=== PATIENT | female | born 1955 | race Caucasian/White ===

== ENCOUNTER 2018-12-01 05:35 | Day surgery (SDC) | payer OTHER ==
[~2018-12-01] VITALS: Ht 165.1 cm; Wt 74.8 kg
[~2018-12-01 05:35] MED LIST: ASPIR-LOW81 MG PO; GLUCOPHAGE XR750 MG PO; LOSARTAN POTASS50 MG PO; LOVASTATIN20 MG PO; OMEPRAZOLE20 MG PO; ONE DAILY MULT1 EAC1 PO
[2018-12-01] MEDS ORDERED: HYDROCODON-ACE1 EA11 PO (08:04)
--- NOTE | 2018-12-01 08:19 | NUR ---
12/01/18 0819 Nicky Covarrubias 0808 PT ARRIVED TO PACU ON 9L VIA MASK, PT DROWSY AND DENIES PAIN AND NAUSEA. RESP EVEN AND UNLABORED. 0814 O2 MASK REMOVED. PLAN OF CARE DISCUSSED WITH PT.
--- NOTE | 2018-12-01 11:10 | NUR ---
PATIENT RETURNED FROM SURGERY, LEFT SHOULDER IN BRACE WITH KRYOCUFF, DRESSING IS CDI. PATIENT SALINE LOCKED, TOLERATING PO, GIVEN PO NORCO, AMBULATED INDEPENDANTLY TO BATHROOM TO VOID. PLAN TO CHECK BP IN 15 MINUTES.
--- NOTE | 2018-12-06 08:32 | OR ---
[facility] [address] [place], [place] [address] Signed DATE OF OPERATION: 12/01/2018 SURGEON: Mary Uriostegui MD PREOPERATIVE DIAGNOSIS: Rotator cuff tear, left shoulder. POSTOPERATIVE DIAGNOSIS: Rotator cuff tear, left shoulder. PROCEDURE PERFORMED: Left shoulder arthroscopy with rotator cuff repair. ANESTHESIA: General. MEDICAL TECHNICIAN ASSISTANT: Phoebe Yao PA-C. Phoebe was present in critical positioning camera manipulation, and closing. BLOOD LOSS: Minimal. IMPLANTS: Arthrex 4.75 SwiveLock with a FiberTape. BRIEF HISTORY: Daniella is a 63-year-old female with pain in her shoulder that is pretty substantial. She had an MRI, which showed a complete biceps tear and a partial to near full thickness rotator cuff tear in the supraspinatus. Risks and benefits of operative treatment were discussed with her and she elected to proceed. DESCRIPTION OF PROCEDURE: Once consent was obtained, she was taken to the operating room. After adequate anesthesia, she was placed in a beach chair position. All downside pressure points were well padded. The right arm was well padded on arm adam. The left shoulder was then prepped and draped in standard sterile fashion and injected with 10 mL of 0.25% Marcaine with epinephrine in this shoulder and the subacromial space. The standard posterior portal was made. The scope was introduced in the shoulder. Electronically Signed By: MARY URIOSTEGUI MD 12/06/18 0832 PATIENT NAME: DANIELLA LEZAMA OPERATIVE REPORT DATE OF : 51 REPORT #: [id number] PHYSICIAN: MARY URIOSTEGUI MD PCP: NO PRIMARY CARE PHYSICIAN REPORT IS CONFIDENTIAL AND NOT TO BE RELEASED WITHOUT AUTHORIZATION [facility] [address] [place] [address] Signed ARTHROSCOPIC FINDINGS: The glenohumeral surfaces were intact. The labrum was intact with a chunk of biceps superiorly. The rest of her biceps was retracted and torn. There was extensive synovitis throughout the shoulder joint. There was a 75% to 80% or 90% rotator cuff tear. Standard anterior portal was made using an outside in technique. The synovitis was cleared out using combination of the shaver and the Mitek VAPR. The rotator cuff tear was then marked with a #1 Prolene and the scope was withdrawn and placed in the subacromial space. There was marked thickening of bursitis throughout with weak and significantly friable tissue. The bursa was removed and the marker suture was found. There was a small hole that was full thickness. We elected to proceed with the repair through that hole. A FiberTape was then placed in an inverted mattress configuration through the tear and a 4.75 anchor was placed in the tuberosity and impacted till it was well-seated tightening the rotator cuff down to its natural position. We had debrided the inside of the shoulder as well to a nice bleeding tissue bed. Once the anchor was fully seated, the bathhouse keeper was removed and the sutures were cut. Shoulder was taken through range of motion and found to be stable. Scope was withdrawn. Portals were closed with 3-0 nylon and dressed with Propax dressing. She tolerated the procedure well. All sponge, needle, and instrument counts were correct. Mary Uriostegui MD BA/MODL /[id number] Copies: ~ Electronically Signed By: MARY URIOSTEGUI MD 12/06/18 0832 PATIENT NAME: DANIELLA LEZAMA OPERATIVE REPORT DATE OF : 51 REPORT #: [id number] PHYSICIAN: MARY URIOSTEGUI MD PCP: NO PRIMARY CARE PHYSICIAN REPORT IS CONFIDENTIAL AND NOT TO BE RELEASED WITHOUT AUTHORIZATION
== END 2018-12-01 12:05 | disposition home or self-care (01) ==
LOC: DS 05:35
PROVIDERS: Specialist
PROC: 0LQ24ZZ Repair Left Shoulder Tendon, Percutaneous Endoscopic Approach (ICD-10-PCS; principal; 2018-12-01 06:45)
DX: M75.122 Complete rotator cuff tear or rupture of left shoulder, not specified as traumatic (principal); S46.212A Strain of muscle, fascia and tendon of other parts of biceps, left arm, initial encounter; E11.9 Type 2 diabetes mellitus without complications; K21.9 Gastro-esophageal reflux disease without esophagitis; I10 Essential (primary) hypertension; Z79.82 Long term (current) use of aspirin; Z79.84 Long term (current) use of oral hypoglycemic drugs; Z79.899 Other long term (current) drug therapy
CPT/HCPCS: 01630; 64415; 76942; C1713; J0330; J0690; J0735; J1100; J1885; J2250; J2405; J2704; J2765; J3010; J7120